=== PATIENT | male | born 1980 | race Caucasian/White ===

== ENCOUNTER 2017-03-17 23:21 | Emergency (ER) | payer OTHER ==
[~2017-03-17] VITALS: Ht 185.4 cm; Wt 77.3 kg
[2017-03-17 23:46] VITALS: BP 138/90; PULSE 92; RESP 18; O2SAT 100
--- NOTE | 2017-03-17 23:50 | ED.REPORT ---
HPI-General Illness Date of Service Mar 17, 2017 ED Provider: Derek Cisneros MD Pt is a 37 year old male with a hx of methamphetamine and heroin abuse and MRSA presenting to the ED complaining of sores to his right and left forearms. He states that he was in skilled nursing recently and so he missed his Suboxone appointment at [facility]. Denies fever, chills, SOB, wheezing, nausea, vomiting or diarrhea. He states that he last did meth and heroin twice this week, and has been off Suboxone for 4 days. Nursing Notes Stated Complaint: MRSA,SUBOXONE Chief Complaint: General Complaint Nursing Notes Reviewed: Yes Allergies: Coded Allergies: No Known Allergies (Verified Allergy, Unknown, 04/05/16) Scheduled Buprenorphine/Naloxone 8-2 mg (Buprenorphine/Naloxone 8-2 mg) 1 Each Tab.subl 2 TABLET SL DAILY General Time Seen by MD: 23:45 Chief Complaint Other (Sores) Hx Obtained From: Patient Arrived By: Walk-in Sudden in Onset?: No Onset Occurred: Onset unknown Symptom Duration: Since onset Location: : Arm left: Arm right Quality: Painful Severity: Current: Moderate Severity: Maximum: Severe Recent Healthcare: Recent doctor visit Similar Sx Previous: Yes Past Medical History Past Medical History MRSA SKin abscesses meth abuse opiate abuse Past Surgical History hand repair wisdom tooth surgery Smoking History Current Every Day Smoker Social History Alcohol Use: Denies alcohol use Drug Use: IV drugs, Meth, Other Other Social History: Homeless Ambulatory Status Independent Review of Systems Full Review of Systems Constitutional: Denies: Chills, Fever Respiratory: Denies: Shortness of breath, Wheezing GI: Denies: Diarrhea, Nausea, Vomiting Skin: Reports Rash Complete sys rev & neg: except as marked. Physical Exam Vital Signs Vital Signs Date Time Temp Pulse Resp B/P Pulse Ox O2 Delivery O2 Flow Rate FiO2 03/18/17 01:20 36.8 96 20 136/88 100 Room Air 03/17/17 23:46 36.9 92 18 138/90 100 Room Air Initial VS: Reviewed, Vital signs normal General/Constitutional: Well-developed, Well-nourished Head / Eyes: Atraumatic, Normocephalic, PERRL ENT: Mucous membranes moist, Conjunctiva normal, No scleral icterus Neck: Supple, Non-tender, Full range of motion Respiratory: Breath sounds normal, Clear to auscultation, No respiratory distress Cardiovascular: Regular rate & rhythm, Heart sounds normal, Intact distal pulses Abdomen / GI: Soft, Non-tender, No guarding, No rebound, No distention Skin: Warm, Dry, No cyanosis Neurologic: Alert, Oriented, Nonfocal Psychiatric: Mood/affect normal, Behavior normal, Normal thought content Skin: Warm, Dry Open sores without abscess to both forearms and wrists Re-Eval/Medical Decision Med Decision/Clinical Course 37-year-old male who was reasonably stable in MAT program at [facility]. His care was disrupted by being jailed and he has subsequently relapsed. We will treat his pick sores on his arms and try to get him back on MAT. Time of Eval: 00:18 Patient Status: Condition improved Re-Evaluation/Progress Note: Discussed plan for discharge. Pt understands and agrees with plan. Counseled Regarding: Diagnosis, Lab results, Need for follow-up, When/why to return to ED Discharge & Departure Primary Impression: Opioid dependence with withdrawal Additional Impressions: Infection of skin due to methicillin resistant Staphylococcus aureus (MRSA) Methamphetamine abuse Disposition: Home Discharge Condition All VS Reviewed: Yes Condition: Improved Patient Instructions: Buprenorphine/Naloxone (Into the mouth) Additional Instructions: Suboxone 8/2 tabs, 2 sublingual daily, #12 prescribed. Mupirocin to the sores twice a day. Call [phone] to schedule an appointment at [facility]. Referrals: OTHER,PHYSICIAN (PCP) (Family) Scribe Attestation Portions of this note were transcribed by Mackenzie Perry. I, Dr. Cisneros personally performed the history, physical exam and medical decision-making; I reviewed and confirmed the accuracy of the information in the transcribed note. Signed by: Camilla Mcdermott, 03/18/2017. Derek Cisneros MD Mar 17, 2017 23:50 MACKENZIE EPRRY Mar 18, 2017 00:17
[2017-03-18] MEDS ORDERED: BUPR1TAB36 SL (00:59)
[2017-03-18 01:20] VITALS: BP 136/88; PULSE 96; RESP 20; O2SAT 100
[2017-03-18] MEDS ORDERED: _Trimethoprim-Sulfa 160/800 mg Tablet PO SCH (08:30)
== END 2017-03-18 01:08 | disposition home or self-care (01) ==
LOC: SED 23:21
DX: F15.10 Other stimulant abuse, uncomplicated (principal); F11.23 Opioid dependence with withdrawal; B95.62 Methicillin resistant Staphylococcus aureus infection as the cause of diseases classified elsewhere; F17.200 Nicotine dependence, unspecified, uncomplicated; Z59.0 Homelessness